=== PATIENT | female | born 1975 | race African-American/Black ===

== ENCOUNTER 2019-01-03 20:57 | Emergency (ER) | payer MEDICAID, OTHER ==
[~2019-01-03] VITALS: Ht 172.7 cm; Wt 79.0 kg
[2019-01-03] MEDS ORDERED: SODIUM CHLORIDE 0.9% 1,000 ML IV ONE (21:10)
[2019-01-03] MEDS ORDERED: HALOPERIDOL LACTATE 5MG/ML VIAL IM ONE (21:15)
[2019-01-03] MEDS ORDERED: LORAZEPAM 2MG/ML CPJ IM ONE (21:15)
[2019-01-03 21:49] LABS: CLARITY URINE CLEAR (CLEAR); COLOR URINE YELLOW (YELLOW); KETONES URINE TRACE (NEGATIVE); LEUKOCYTE ESTERASE URINE NEGATIVE (NEGATIVE); NITRITE URINE NEGATIVE (NEGATIVE); OCCULT BLOOD URINE 2+ (NEGATIVE); PH URINE 5.5 (4.5-8.0); PROTEIN URINE NEGATIVE (NEGATIVE); SPECIFIC GRAVITY URINE 1.005 (1.005-1.030); UROBILINOGEN URINE 0.2 E.U./dL (0.2-1.0)
[2019-01-03 21:58] LABS: *BARBITURATES SCREEN URINE NEGATIVE (NEGATIVE); *BENZODIAZEPINES SCREEN URINE NEGATIVE (NEGATIVE)
[2019-01-03 21:59] LABS: *AMPHETAMINES SCREEN URINE NEGATIVE (NEGATIVE); *COCAINE SCREEN URINE NEGATIVE (NEGATIVE); METHADONE URINE SCREEN NEGATIVE (NEGATIVE); OPIATES URINE SCREEN NEGATIVE (NEGATIVE); PHENCYCLIDINE URINE SCREEN NEGATIVE (NEGATIVE)
[2019-01-03 22:00] LABS: CANNABINOID URINE SCREEN NEGATIVE (NEGATIVE)
[2019-01-03 23:11] LABS: EOSINOPHILS % 0.1 % (0.0-5.0); HEMATOCRIT. 34.3 % (36.0-48.0); HEMOGLOBIN. 11.6 g/dL (12.0-16.0); LYMPHOCYTES % 34.6 % (20.0-50.0); MEAN CORPUSCULAR HEMOGLOBIN 33.1 pg (28.0-32.0); MEAN CORPUSCULAR VOLUME 97.7 fL (81.0-99.0); MEAN PLATELET VOLUME 8.8 fl (7.4-10.4); MONOCYTES % 13.3 % (2.0-8.0); PLATELET 311 x1000/uL (130-400); RED BLOOD CELL COUNT 3.51 mill/uL (4.2-5.4); RED CELL DISTRIBUTION WIDTH 12.4 % (11.6-14.6)
[2019-01-03 23:16] LABS: CHLORIDE 109 mEq/L (98-107)
[2019-01-03 23:19] LABS: ETHANOL BLOOD < 10 mg/dL
[2019-01-04] MEDS ORDERED: POTASSIUM CHLORIDE 20MEQ TABLET SR PO NR
[2019-01-04] MEDS ORDERED: LORAZEPAM 1MG TABLET PO ONE (13:15)
[2019-01-04] MEDS ORDERED: LORAZEPAM 2MG/ML CPJ IV ONE ×2 (19:30→21:30)
[2019-01-05] MEDS ORDERED: OLANZAPINE 5MG TABLET ODT PO NR (01:45)
[2019-01-05] MEDS ORDERED: ZIPRASIDONE HCL 20MG CAPSULE PO ONE (04:00)
[2019-01-05 06:55] VITALS: BP 123/87
== END 2019-01-05 12:32 | disposition home or self-care (01) ==
LOC: ER 20:57
DX: F23 Brief psychotic disorder (principal); F15.10 Other stimulant abuse, uncomplicated; F31.9 Bipolar disorder, unspecified; Z78.1 Physical restraint status; Z91.14 Patient's other noncompliance with medication regimen; Z88.6 Allergy status to analgesic agent
CPT/HCPCS: 36415; 80053; 80305; 80307; 80320; 80329; 81003; 81025; 85025; 96372; 96374; 99284; J1630; J2060; J7030; Z7610; G0480

== ENCOUNTER 2021-01-27 00:54 | Emergency (ER) | payer MEDICAID, OTHER ==
[~2021-01-27] VITALS: Ht 175.3 cm; Wt 91.0 kg
[2021-01-27] MEDS ORDERED: LORAZEPAM 2MG/ML CPJ IM STA (01:29)
[2021-01-27] MEDS ORDERED: DIPHENHYDRAMINE 50MG/ML VIAL IM STA (01:29)
[2021-01-27] MEDS ORDERED: HALOPERIDOL LACTATE 5MG/ML VIAL IM STA (01:29)
[2021-01-27 02:22] LABS: BASOPHILS % 0.6 % (0.0-2.0); EOSINOPHILS % 0.2 % (0.0-5.0); HEMATOCRIT. 37.4 % (36.0-48.0); HEMOGLOBIN. 12.8 g/dL (12.0-16.0); LYMPHOCYTES % 24.9 % (20.0-50.0); MEAN CORPUSCULAR HEMOGLOBIN 32.7 pg (28.0-32.0); MEAN CORPUSCULAR VOLUME 95.6 fL (81.0-99.0); MEAN PLATELET VOLUME 7.5 fl (7.4-10.4); NEUTROPHILS % 63.3 % (40.0-76.0); PLATELET 387 x1000/uL (130-400); RED BLOOD CELL COUNT 3.91 mill/uL (4.2-5.4); RED CELL DISTRIBUTION WIDTH 12.9 % (11.6-14.6)
[2021-01-27 02:30] LABS: HCG SCREEN NEGATIVE
[2021-01-27 02:33] LABS: CHLORIDE 103 mEq/L (98-107)
[2021-01-27 02:37] LABS: ETHANOL BLOOD 47 mg/dL
[2021-01-27] MEDS ORDERED: KCL 20MEQ/100ML PREMIX 100 ML IV ONE (03:00)
[2021-01-27] MEDS ORDERED: POTASSIUM CHLORIDE 20MEQ/PACKET PO SCH (08:15)
[2021-01-27] MEDS ORDERED: POTASSIUM CHLORIDE 20MEQ TABLET SR PO SCH (08:15)
[2021-01-27 13:38] VITALS: BP 117/78
== END 2021-01-27 13:36 | disposition short-term general hospital (02) ==
LOC: ER 01:01
DX: R45.6 Violent behavior (principal); I16.0 Hypertensive urgency; I49.9 Cardiac arrhythmia, unspecified; Z88.6 Allergy status to analgesic agent
CPT/HCPCS: 36415; 80053; 80307; 80320; 80329; 82140; 82962; 83605; 84132; 84443; 84703; 85025; 93005; 96365; 96366; 96372; 99285; J1200; J1630; J2060; J3480; G0480